=== PATIENT | male | born 1995 | race Caucasian/White ===

== ENCOUNTER 2020-08-25 21:58 | Emergency (ER) | payer OTHER ==
[2020-08-25 22:51] LABS: Acetaminophen Less than 6.0 mcg/mL (10.0-30.0); Alcohol Less than 10 mg/dL (Less than 10); Salicylate Less than 8.0 mg/dL (15.0-30.0)
[2020-08-25 22:59] LABS: #Basophils 0.1 10x3/uL (0.0-0.2); #Eosinphils 0.2 10x3/uL (0.0-0.5); #Monocytes 0.8 10x3/uL (0.0-1.1); #Neutrophils 5.2 10x3/uL (1.5-8.4); %Basophils 0.6 % (0.0-2.0); %Eosinophils 2.3 % (0.0-6.0); %Monocytes 8.7 % (0.0-10.0); %Neutrophils 55.1 % (40.0-75.0); Hemoglobin 14.9 g/dL (13.5-17.5); INR-International Normal Ratio 0.9; Mean Corpuscular HGB CONC 33.8 g/dL (32.0-36.0); Mean Corpuscular Hemoglobin 29.8 pg (27.0-33.0); Mean Corpuscular Volume 88.2 fl (81.2-95.1); PTT 27.4 sec (22.0-33.0); Platelet Count 290 10x3/uL (150-450); Prothrombin Time 10.3 sec (9.5-12.1); RBC Distribution Width 13.1 % (11.5-14.5); White Blood Cell (WBC) Count 9.4 10x3/uL (3.5-10.5)
[2020-08-25 23:00] LABS: ALT (SGPT) 77 U/L (8-55); AST (SGOT) 38 U/L (5-34); Albumin 4.6 g/dL (3.5-5.0); Alkaline Phosphatase 85 U/L (40-110); Anion Gap 18 mmol/L (10-20); BUN (Urea Nitrogen) 12 mg/dL (8.9-20.6); Bilirubin, Total 0.4 mg/dL (0.2-1.2); CK (CPK) 271 U/L (30-200); Calc. Creatinine Clearance 0 mL/min (70-130); Calcium 9.6 mg/dL (7.8-10.44); Carbon Dioxide 22 mmol/L (22-29); Chloride 106 mmol/L (98-107); Globulin 3.1 g/dL (2.4-3.5); Glucose 102 mg/dL (70-105); Potassium 4.1 mmol/L (3.5-5.1); Protein, Total 7.7 g/dL (6.0-8.3); Sodium 142 mmol/L (136-145)
[2020-08-25] MEDS ORDERED: diphenhydrAMINE 50 MG/ML VIAL ONE (23:25)
[2020-08-25] MEDS ORDERED: Magnesium 2 GM/50 ML BAG (IN WATER) ONE (23:26)
[2020-08-25] MEDS ORDERED: Metoclopramide HCl 10 MG/2 ML VIAL ONE (23:26)
[2020-08-25] MEDS ORDERED: Ketorolac Tromethamine 30 MG/ML VIAL ONE (23:26)
[2020-08-26 00:49] LABS: Amphetamine Not Detected (NotDetected); Barbiturates Screen Not Detected (NotDetected); Benzodiazepine Screen Not Detected (NotDetected); Cocaine Metabolite Screen Not Detected (NotDetected); Methadone Not Detected (NotDetected); Methamphetamine Not Detected (NotDetected); Opiate Screen Not Detected (NotDetected); Oxycodone Screen Not Detected (NotDetected); Phencyclidine (PCP) Not Detected (NotDetected); THC/Cannabinoid Screen Not Detected (NotDetected); Tricyclic Screen Not Detected (NotDetected)
[2020-08-26] MEDS ORDERED: Dexamethasone 10 MG/ML VIAL ONE (01:32)
== END 2020-08-26 01:40 | disposition home or self-care (01) ==
LOC: CSHERS 21:58
DX: G43.109 Migraine with aura, not intractable, without status migrainosus (principal)
CPT/HCPCS: 70450; 70496; 70498; 71045; 80053; 80306; 80307; 82550; 84484; 85025; 85610; 85730; 93005; 96365; 96367; 96375; J1100; J1200; J1885; J2765; J3475

== ENCOUNTER 2021-08-27 11:02 | Outpatient (CLI) | payer BC | END 2021-08-27 11:03 | disposition home or self-care (01) | LOC: CSHRAD 11:02 | PROVIDERS: ATTEND Family Medicine Sports Medicine | DX: M54.50 Low back pain, unspecified (principal); K62.89 Other specified diseases of anus and rectum | CPT/HCPCS: 72100; 72220; 74019 ==